=== PATIENT | male | born 1945 | race Caucasian/White ===

== ENCOUNTER → 2018-09-01 | Outpatient (CLI) | payer OTHER, BC ==
[~2018-09-01] VITALS: Ht 182.9 cm; Wt 97.5 kg
[~2018-09-01] MED LIST: ARMODAFINIL150 MG PO; ASPIR 8181 MG PO; ATORVASTATIN CA40 MG PO; CO Q-10100 MG PO; FLONASE 0.05%50 MCG NASAL; LUMIGAN2.5 M1 OPHTHALMIC; METOPROLOL SUC100 MG PO; MULTI VITAMIN1 EACH PO; NORVASC5 MG PO; OSTEO BI-FLEX1 EAC1 PO; RESTORIL30 MG PO
--- NOTE | ~2018-09-01 | P ---
[facility] [place] [address] PROCEDURE REPORT Name: MESERETANKUR Jenifer Room #: REG [facility]#: [id number] Admission: 09/01/18 ������������������ Attend Phys: Placido Pacheco MD Discharge: ������������������ Date of : 43 Report #: [id number] THIS REPORT FOR: //name// CC: Kel Pacheco DATE OF SERVICE: 09/01/2018 BRIEF HISTORY: The patient is a 73-year-old male with a history of colon polyps. He has, I believe, had at least 6 adenomas in the past. PREOPERATIVE DIAGNOSIS: High risk screening colonoscopy due to multiple colon adenomas in the past. POSTOPERATIVE DIAGNOSES: 1. Multiple colon polyps. 2. Moderate to severe diverticulosis coli, greater in left colon than right colon. 3. Small internal hemorrhoids. MEDICATIONS: Deep sedation with propofol per Anesthesia. SPECIMENS: 1. Diminutive polyp, proximal ascending colon. 2. Diminutive polyp, mid transverse colon. 3. Polyps x 2 at 70 cm. 4. Diminutive polyp at 50 cm. ESTIMATED BLOOD LOSS: 3 mL. PROCEDURE: Colonoscopy to cecum and terminal ileum with snare polypectomy and biopsy. FINDINGS: Prior to propofol sedation, the procedure of colonoscopy was discussed with the patient as well as potential risks and its complications. He indicates he understands and desires to proceed. DESCRIPTION OF PROCEDURE: With the patient in left lateral decubitus position, digital examination was completed, which revealed no abnormalities. Subsequently, the Olympus video colonoscope was introduced in the rectum and advanced under direct vision to the cecum. Done with minimal difficulty. The cecum was identified by the ileocecal valve and the appendiceal orifice. I was able to visualize the distal segment of the terminal ileum, which was inspected and noted to be unremarkable. At that point, scope was slowly withdrawn and careful circumferential views were obtained. Upon slow withdrawal of the scope, [facility] [address] [place] [address] PROCEDURE REPORT Name: ANKUR CARL Room #: REG [facility].#: [id number] Admission: 09/01/18 ������������������ Attend Phys: Placido Pacheco MD Discharge: ������������������ Date of : 43 Report #: [id number] the prep was good. The mucosa was within normal limits, normal vascular pattern, normal light reflex. As we withdrew the scope, a diminutive polyp was identified in the proximal ascending colon, removed by cold snare polypectomy. The scope was further withdrawn and another diminutive polyp was seen and removed with cold biopsy forceps in the mid transverse colon. At 70 cm, 2 polyps were seen. One was a diminutive polyp removed with biopsy forceps. The other was about a 4-5 mm sessile polyp removed by cold snare polypectomy. Scope was further withdrawn and at 50 cm a 3-4 mm sessile polyp was seen and removed with cold biopsy forceps. In addition, as we withdrew the scope, he was noted to have diverticular disease with [id number] diverticular disease in the proximal colon including the ascending colon and transverse colon. There was moderately severe disease in the left colon, in particular the sigmoid colon. There was no endoscopic evidence of diverticulitis. The scope was further withdrawn and upon further withdrawn no abnormalities were seen in the rectum. Upon retroflexion, small hemorrhoids were seen. Scope was withdrawn. The patient tolerated the procedure well. CONDITION OF THE PATIENT UPON DISCHARGE: Following the procedure, the patient was drowsy, aroused, conversant and will be discharged home when fully ambulatory. INSTRUCTIONS TO THE PATIENT AND FAMILY AT THE TIME OF DISCHARGE: We will follow up on the path of the polyps. If three or more polyps are adenomas, he should return in 3 years, otherwise he should return in 5 years. He will return to care of Dr. Kel Cunningham and return to see me as needed. Previous colonoscopy was 3 years ago. Withdrawal time from the cecum was 22 minutes 58 seconds. ��������������������������������������������� ���������������������������������������� By: ��������������������������������������������� [id number] Placido Pacheco MD /nt
--- NOTE | 2018-09-02 17:06 | PATH ---
[facility] [place] [address] PATHOLOGY RPT PROCEDURE Name: ANKUR OLSON Room #: REG [facility].#: [id number] ������������������ Admission: 09/01/18 ������������������ Date of : 43 Discharge: Report #: [id number] Path Case #: [id number] [facility] Accession Number: [id number] . 01 Material submitted: . PART A: BX POLYP AT PROXIMAL ASCENDING COLON PART B: BX POLYP AT MID TRANSVERSE COLON PART C: BX #1 POLYP AT 70CM; #2 POLYP AT 70CM PART D: BX POLYP AT 50CM . 01 Clinical history: . Pre-OP DX: Hx polyps Post-OP DX: Colon polyps, diverticulosis, hemorrhoids . 02 Diagnosis: A. Polyp, at proximal ascending colon, endoscopic biopsy: - Tubular adenoma. - Negative for high grade dysplasia. . B. Polyp, at mid transverse colon, endoscopic biopsy: - Hyperplastic polyp. - Negative for dysplasia. . C. Polyp x2, at 70 cm, endoscopic biopsy: - Tubular adenoma identified in multiple fragments. - Negative for high grade dysplasia. . D. Polyp, at 50 cm, endoscopic biopsy: - Tubular adenoma. - Negative for high grade dysplasia. . (IUV:mml; 09/02/2018) QLM/09/02/2018 . 02 Electronically signed: . Lou Campos MD, Pathologist NPI- [id number] . 01 Gross description: . A. Received in formalin labeled "Ankur Olson BX polyp proximal ascending colon," is a single segment of cartwright soft tissue measuring 0.5 cm in maximum dimension. The specimen is entirely submitted in cassette A1. . B. Received in formalin labeled "Ankur Olson BX polyp mid transverse colon," is a single segment of cartwright soft tissue measuring 0.4 cm in maximum dimension. The specimen is entirely submitted [place] [address] PATHOLOGY RPT PROCEDURE Name: ANKUR OLSON Room #: REG [facility]#: [id number] ������������������ Admission: 09/01/18 ������������������ Date of : 43 Discharge: Report #: [id number] Path Case #: [id number] C. Received in formalin labeled "Ankur Olson BX polyp at 70 cm x2," are 3 segments of cartwright soft tissue measuring 1.3 x 0.8 x 0.2 cm in aggregate dimensions and ranging from 0.4 to 0.5 cm in maximum dimension. The specimen is submitted entirely in cassette C1. . D. Received in formalin labeled "Wesley Ankur, BX polyp at 50 cm," is a single segment of cartwright soft tissue measuring 0.4 cm in maximum dimension. The specimen is entirely submitted in cassette D1. (TSD; 09/01/2018) TOB/TOB . 02 Pathologist provided ICD-10: D12.2, K63.5, D12.6 . 02 CPT . 705667, [id number], [id number], [id number] Specimen Comment: A courtesy copy of this report has been sent to Specimen Comment: [phone], . Specimen Comment: Report sent to / DR SLATER Performed at: [address] [id number] MD Amari Stack MD Phone: [phone] Performed at: [address] [id number] MD Lou Campos MD Phone: [phone]
== END | disposition home or self-care (01) ==
LOC: GI 08:05
DX: Z12.11 Encounter for screening for malignant neoplasm of colon (principal); D12.2 Benign neoplasm of ascending colon; K63.5 Polyp of colon; D12.5 Benign neoplasm of sigmoid colon; D12.4 Benign neoplasm of descending colon; K57.30 Diverticulosis of large intestine without perforation or abscess without bleeding; K64.8 Other hemorrhoids; G47.30 Sleep apnea, unspecified; I10 Essential (primary) hypertension; E78.5 Hyperlipidemia, unspecified; K21.9 Gastro-esophageal reflux disease without esophagitis; E78.00 Pure hypercholesterolemia, unspecified; Z86.010 Personal history of colon polyps; Z87.891 Personal history of nicotine dependence; Z98.890 Other specified postprocedural states; Z95.1 Presence of aortocoronary bypass graft; Z91.041 Radiographic dye allergy status; Z79.899 Other long term (current) drug therapy; Z79.82 Long term (current) use of aspirin
CPT/HCPCS: 62110; 62900

== ENCOUNTER → 2019-12-07 | Outpatient (CLI) | payer OTHER, BC | LOC: SJCVC 13:37 | DX: I44.0 Atrioventricular block, first degree (principal); I25.810 Atherosclerosis of coronary artery bypass graft(s) without angina pectoris; I10 Essential (primary) hypertension; I65.23 Occlusion and stenosis of bilateral carotid arteries; E78.5 Hyperlipidemia, unspecified; G47.33 Obstructive sleep apnea (adult) (pediatric); E78.00 Pure hypercholesterolemia, unspecified; Z82.49 Family history of ischemic heart disease and other diseases of the circulatory system; Z95.1 Presence of aortocoronary bypass graft; Z79.899 Other long term (current) drug therapy; Z87.891 Personal history of nicotine dependence ==

== ENCOUNTER → 2020-06-10 | Outpatient (CLI) | payer OTHER, BC | LOC: SJCVC 13:28 | PROVIDERS: ATTEND Internal Medicine | DX: R94.31 Abnormal electrocardiogram [ECG] [EKG] (principal); I44.0 Atrioventricular block, first degree; I25.10 Atherosclerotic heart disease of native coronary artery without angina pectoris; I10 Essential (primary) hypertension; I65.23 Occlusion and stenosis of bilateral carotid arteries; E78.5 Hyperlipidemia, unspecified; G47.33 Obstructive sleep apnea (adult) (pediatric); I48.91 Unspecified atrial fibrillation; Z95.1 Presence of aortocoronary bypass graft; Z87.891 Personal history of nicotine dependence; Z72.89 Other problems related to lifestyle ==

== ENCOUNTER → 2020-12-19 | Outpatient (CLI) | payer OTHER, BC | LOC: SJCVC 14:26 | PROVIDERS: ATTEND Internal Medicine | DX: R94.31 Abnormal electrocardiogram [ECG] [EKG] (principal); I44.0 Atrioventricular block, first degree; I25.10 Atherosclerotic heart disease of native coronary artery without angina pectoris; I10 Essential (primary) hypertension; I65.23 Occlusion and stenosis of bilateral carotid arteries; E78.5 Hyperlipidemia, unspecified; G47.33 Obstructive sleep apnea (adult) (pediatric); I63.9 Cerebral infarction, unspecified; I48.91 Unspecified atrial fibrillation; E78.00 Pure hypercholesterolemia, unspecified; Z95.1 Presence of aortocoronary bypass graft; Z79.82 Long term (current) use of aspirin; Z79.899 Other long term (current) drug therapy; Z86.73 Personal history of transient ischemic attack (TIA), and cerebral infarction without residual deficits; Z87.891 Personal history of nicotine dependence; Z82.49 Family history of ischemic heart disease and other diseases of the circulatory system ==

== ENCOUNTER → 2021-06-26 | Outpatient (CLI) | payer OTHER, BC | LOC: SJCVC 13:21 | PROVIDERS: ATTEND Internal Medicine | DX: R94.31 Abnormal electrocardiogram [ECG] [EKG] (principal); I25.10 Atherosclerotic heart disease of native coronary artery without angina pectoris; I48.0 Paroxysmal atrial fibrillation; I10 Essential (primary) hypertension; I65.23 Occlusion and stenosis of bilateral carotid arteries; E78.5 Hyperlipidemia, unspecified; G47.33 Obstructive sleep apnea (adult) (pediatric); E78.00 Pure hypercholesterolemia, unspecified; I63.9 Cerebral infarction, unspecified; Z95.1 Presence of aortocoronary bypass graft; Z87.891 Personal history of nicotine dependence; Z72.89 Other problems related to lifestyle; Z79.82 Long term (current) use of aspirin; Z79.899 Other long term (current) drug therapy; Z91.048 Other nonmedicinal substance allergy status; Z82.49 Family history of ischemic heart disease and other diseases of the circulatory system ==